=== PATIENT | male | born 1955 | race Caucasian/White ===

== ENCOUNTER 2016-09-26 10:06 | Day surgery (SDC) | payer OTHER ==
[~2016-09-26] VITALS: Ht 185.4 cm; Wt 177.0 kg
[~2016-09-26 10:06] MED LIST: ASPI-973 PO; ATOR20TA PO; LISI-571 PO; Sodium Chloride LOK Flush 10 mL Syringe IV PRN; TOP200 PO; fentaNYL-PF 50 mCg/mL 2 mL Inj IVPUSH PRN
[2016-09-26 10:23] VITALS: BP 134/81; PULSE 58; RESP 16; O2SAT 94
[2016-09-26] MEDS: 0.9% Sodium Chloride 1,000 ML IV SCH ×2 (10:44→10:55)
[2016-09-26 11:07] VITALS: BP 131/83; PULSE 58; RESP 16; O2SAT 95
[2016-09-26 11:17] VITALS: BP 134/76; PULSE 57; RESP 16; O2SAT 96
[2016-09-26 11:21] VITALS: BP 142/86; PULSE 58; RESP 16; O2SAT 96
--- NOTE | 2016-09-26 15:49 | ENDO ---
[address] [address] ENDOSCOPY PROCEDURE PATIENT: JAVAN FUENTES : 1955 MR#: [id number] ADMIT: 09/26/2016 JOB ID: [id number] DATE OF SERVICE: 09/26/2016 PROCEDURE PERFORMED: Colonoscopy. INDICATIONS: The patient with a history of right-sided colon cancer, for which he had undergone a right hemicolectomy. His colonoscopy last year revealed two polyps, one in the ascending colon and transverse colon which were hyperplastic and tubular adenoma, respectively. ASA CLASSIFICATION: The patient's ASA classification is II. MALLAMPATI SCORE: Mallampati score was 2. MEDICATIONS: 1. Versed 5 mg. 2. Fentanyl 100 mcg. INSTRUMENT USED: PCF-H180AL. PREPARATION QUALITY: Fair. PROCEDURE DETAILS: After informed consent was obtained, the patient was brought into the GI suite, where he was placed on oxygen via nasal cannula and monitored with continuous pulse oximeter, telemetry, and blood pressure monitoring. A time-out was performed. Then, he was placed in the left lateral decubitus position and medications were administered for sedation. Digital rectal exam was performed which was unremarkable. The colonoscope was then inserted into the rectum and advanced under direct visualization to the ileocolic anastomosis. Once the anastomosis was reached, the colonoscope was withdrawn back to the rectum. Mucosa and lumen were examined. In the rectum, retroflexion was performed. Following retroflexion, remaining air in the rectum was suctioned, and procedure was completed. FINDINGS: 1. Surgical changes consistent with the patient's history of right hemicolectomy. 2. Otherwise normal exam. RECOMMENDATIONS: Repeat colonoscopy in one year. COMPLICATIONS: None. ESTIMATED BLOOD LOSS: Zero.
== END 2016-09-26 23:59 | disposition home or self-care (01) ==
LOC: END 10:06
PROVIDERS: ATTEND Internal Medicine Gastroenterology
DX: Z12.11 Encounter for screening for malignant neoplasm of colon (principal); Z85.038 Personal history of other malignant neoplasm of large intestine; Z86.010 Personal history of colon polyps; I48.0 Paroxysmal atrial fibrillation; Z79.82 Long term (current) use of aspirin
CPT/HCPCS: G0105; G0500; J7030